=== PATIENT | male | born 1970 | race Caucasian/White ===

== ENCOUNTER 2018-12-18 11:40 | Outpatient (CLI) | payer OTHER ==
--- NOTE | 2018-12-18 12:36 | RAD ---
THREE VIEWS LEFT SHOULDER: History: Pain x 2 weeks. Comparison: 10-15-13 FINDINGS: Glenohumeral joint space is preserved. No fracture or dislocation. Visualized left ribs are unremarka ble. IMPRESSION: Unremarkable left shoulder three views. POS: [facility]
== END 2018-12-18 11:41 | disposition home or self-care (01) ==
LOC: SCSRAD 11:40
PROVIDERS: ATTEND Nurse Practitioner Family
DX: M25.512 Pain in left shoulder (principal)